=== PATIENT | female | born 1980 | race Caucasian/White ===

== ENCOUNTER 2019-09-29 07:31 | Outpatient (CLI) | payer OTHER, SELFPAY ==
--- NOTE | 2019-10-16 12:54 | SLEEP_ITS ---
CPAP Titration DATE OF STUDY: 09/29/2019 ORDERING PHYSICIAN: Josef Taylor D.O. REASON FOR THE STUDY: Obstructive sleep apnea syndrome seen on a home sleep test on 06/05/2019, returns for a titration. HISTORY: This patient is a 39-year-old female, 62 inches tall, weighing 310 pounds with a body mass index of 56.7. On a prior study 06/05/2019, she had extreme fatigue in the day, excessive sleepiness with difficulty keeping her eyes open and constant snoring. It is loud enough that others complained about it. Other people tell her that she does not breathe normally at night. She occasionally sweats excessively at night and rarely notices her heart pounding irregularly at night. Her AHI was 28.4 with a deep desaturation to 78%, spending 10% of the study below 88% saturation. She returns now for CPAP titration. MEDICAL COMORBIDITIES: Hypertension, fatigue, chest pain, anxiety, palpitations, gastroesophageal reflux disease. MEDICATIONS: 1. Ibuprofen 1 or 2 times per day for pain. 2. Paxil 20 mg a day for depression and anxiety. 3. Omeprazole 40 mg a day for heartburn. 4. [id number] leg cramp medication 2 or 3 times a day for leg cramps. HABITS: Tobacco, half pack per day. Caffeine, 1 coffee, 2 sodas a day. Rare alcohol. No recreational drugs. DESCRIPTION OF THE STUDY: On the Barnes Sleepiness Scale, her score was 10. This was conducted as attended in-lab study using the bluepulse Multiple Channel System including EOG, EEG, submental EMG, EKG, nasal and oral airflow using thermistors and nasal pressure sensors, chest and abdominal belts, body position data, and pulse oximetry. The study was scored using [facility] guidelines. Duration of the study 440.6 minutes. Sleep time 419.7 minutes. Sleep efficiency 95.3%. Sleep latency 13.4 minutes. REM latency 90 minutes. She had 11 awakenings and spent 1.8% of the study awake after sleep onset of 7.5 minutes. Sleep architecture showed 4.6% stage 1 sleep, 59.1% stage 2 sleep, 5.4% stage 3 sleep, and 29.2% stage REM. She spent 98.2% of the study supine. She had dense episodes of REM during the middle of the night. She had 3 REM cycles and the consolidated REM in the middle of the night was over 2 hours. The apnea-hypopnea index was 11.3, all obstructive events. She had 1 obstructive apnea and 24 obstructive hypopneas in supine REM for an index of 12. She had 54 obstructive hypopneas in supine non-REM for an index of 11. The supine index was 11.3. Lowest desaturation was 84% and she spent 6.8 minutes below 88% saturation, 1.5% of the study. She had 79 desaturations of 4% or greater for an index of 10.8. Mean saturation for the study was 91%. OVERALL AROUSAL SUMMARY: Arousals: 52 arousals for an index of 7.1. There were 10 hypopneas for an index of 1.4, 9 snores for an index of 1.2, 33 spontaneous for an index of 4.5. Limb movements: No limb movements. EKG: Sinus rhythm, mean heart rate 81. She had tachycardia with the highest heart rate 104. During this titration, this patient used a small AirFit F20 full face mask. CPAP was started at 5 cm and gradually increased to 14 cm. At the highest pressure, the AHI was still elevated at 12.9, although during the last hour and 15 minutes the patient did not have significant number of events. It is possible, she could have been titrated a little further. She spent 2 hours 32 minutes at a pressure of 14 with 17 minutes of REM, 2 hour 11 minutes of non-REM, a sleep efficiency of 98% and an AHI of 12.9. The minimum saturation was 84. However, during the last hour, the saturation was stable around 90-91 percent. The patient had supine sleep throughout this entire night. IMPRESSION: 1. The CPAP titration shows improvement with a pre
== END 2019-09-29 07:32 | disposition home or self-care (01) ==
LOC: ANHCSM 07:38
PROVIDERS: Visit Provider Internal Medicine
DX: G47.33 Obstructive sleep apnea (adult) (pediatric) (principal)
CPT/HCPCS: 95811

== ENCOUNTER 2020-01-22 17:38 | Emergency (ER) | payer OTHER, SELFPAY ==
[2020-01-22 17:51] VITALS: BP 154/71; PULSE 77; RESP 16; TEMP 37.9; O2SAT 97
--- NOTE | 2020-01-22 18:09 | ED.GENADULT ---
HPI - General Adult General Chief complaint: Dizziness Stated complaint: dizziness Time Seen by Provider: 01/22/20 18:10 Source: patient and RN notes reviewed Mode of arrival: ambulatory Limitations: no limitations History of Present Illness HPI narrative: This is a 39 years old female presented office for evaluations of dizziness for 2 days. Dizziness described as disequilibrium especially when she moving her head. She also describes her dizziness floating instead of walking. Dizziness associated with nauseous, extreme thirst, and malaise. She admits to history of dizziness in the past; but it was only last temporarily and usually went away on its own or with claritin D. Denies sinus congestion, cough, shortness of breath, chest pain, or vomiting. Denies sick contact. 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 She went to work this morning with feeling a little dizziness; but it's definitely worse right now. Her mother drove her here. She did not know that she has fever until we checked here. Her work place does not check fever. Related Data Home Medications Medication Instructions Recorded Confirmed omeprazole 40 mg PO DAILY 01/22/20 01/22/20 paroxetine HCl 20 mg PO DAILY 01/22/20 01/22/20 Allergies Allergy/AdvReac Type Severity Reaction Status Date / Time No Known Allergies Allergy Unverified 10/07/16 08:04 Review of Systems Review of Systems: Narrative: CONSTITUTIONAL: Denies chills EYES: Denies visual changes ENT: Denies congestion, sore throat, ears pain CARDIOVASCULAR: Denies chest pain, palpitation, edema. RESPIRATORY: Denies dyspnea,cough. Reports wearing cpap at night GASTROINTESTINAL: Denies abdominal pain, vomiting, diarrhea. Reports nausea GENITOURINARY: Denies urinary symptoms SKIN: Denies rash/insect bite MUSCULOSKELETAL: Reports generalize ache and pain and fatigues NEUROLOGIC: Denies passing out. Reports extreme dizziness. All other systems reviewed are negative, except as documented in HPI. [facility] Past Medical History Medical History Anxiety disorder, unspecified Essential (primary) hypertension Fatty liver GERD (gastroesophageal reflux disease) Surgical History Surgical History Hx of tonsillectomy Family History Family History (Updated 01/22/20 @ 18:27 by LAURI Schilling) Father Family history of malignant neoplasm Heart disease Grandparent Heart disease Social History Social History Smoking status: Current every day smoker Second hand tobacco smoke exposure: Yes Smoking end date: 07/26/12 Alcohol intake: current Comments At time of signature, I agree with nursing past medical, surgical, social and family history. Exam Narrative: Exam Narrative: GENERAL: This is a well-nourished, well-developed patient, in no apparent distress; but appears ill, Obese EYES: PERRL. EOMI. Sclera clear/white. Vision is grossly intact. EARS: External ears normal, auditory canals clear and without drainage, TMs normal without perforation. Hearing grossly intact. NOSE: External nose normal with no obvious nasal discharge, nares without redness, no rhinorrhea. THROAT: Mucous membranes moist, posterior pharynx clear. NECK: Neck supple, non-tender without lymphadenopathy, masses or thyromegaly. CARDIOVASCULAR: Regular rate and rhythm without murmurs, gallops, or rubs. RESPIRATORY: Clear to auscultation. Breath sounds equal bilaterally. No wheezes, rales, or rhonchi. GASTROINTESTINAL: Abdomen soft, non-tender, nondistended. Bowel sounds are active. No hepato-splenomegaly, or palpable masses. No guarding. SKIN: warm, intact with no suspicious lesions or rash, good texture and turgor. NEURO: awake, alert, and oriented to person, place and time. There were no obvious focal n
[2020-01-22 18:22] VITALS: BP 156/59; PULSE 78
--- NOTE | 2020-01-22 18:22 | ECG_ITS ---
Measurements Intervals [place] Rate: 74 P: 26 [place]: 171 QRS: 13 QRSD: 98 T: 12 QT: 392 QTc: 436 Interpretive Statements SINUS RHYTHM BASELINE ARTIFACT- II, III, AVF BORDERLINE ECG Electronically Signed On 01-23-2020 7:12:19 CDT by Harvey Duvall D.O.
[2020-01-22 18:29] LABS: Glucose Point of Care 85 (65-105)
[2020-01-22 18:37] VITALS: BP 149/81; PULSE 79
[2020-01-22 18:38] VITALS: BP 148/84; PULSE 88
[2020-01-22 18:40] VITALS: TEMP 37.9
[2020-01-22] MEDS: ACETAMINOPHEN 325 MG TABLET 650 MG PO (18:40)
[2020-01-22 19:00] VITALS: TEMP 37.6
== END 2020-01-22 19:00 | disposition home or self-care (01) ==
PROVIDERS: Emergency Provider Nurse Practitioner; PCP Internal Medicine
DX: R55 Syncope and collapse (principal); R50.9 Fever, unspecified; F17.210 Nicotine dependence, cigarettes, uncomplicated; I10 Essential (primary) hypertension
CPT/HCPCS: 82948; 87880; 93005; 99213; A9270; G0463

== ENCOUNTER 2020-05-04 09:12 | Outpatient (CLI) | payer OTHER, SELFPAY ==
[2020-05-04 09:50] LABS: Basophils Percent Auto 0.3 % (0.2-1.2); Eosinophils Absolute Auto 0.2 K/mm3 (0-0.3); Eosinophils Percent Auto 1.8 % (0-4.4); Hematocrit 44.6 % (37.0-47.0); Hemoglobin 14.8 g/dL (12.0-15.0); Immature Granulocyte Absolute 0.04 K/mm3 (0.00-0.031); Immature Granulocyte Percent A 0.3 % (0-0.5); Lymphocytes Absolute Auto 1.99 K/mm3 (0.9-3.2); Mean Corpuscular HGB Conc 33.2 g/dl (32-36); Mean Corpuscular Hemoglobin 30.2 pg (26-34); Mean Platelet Volume 12.2 fl (7.4-10.4); Monocytes Absolute Auto 0.7 K/mm3 (0.1-0.6); Monocytes Percent Auto 6.2 % (2.6-8.5); Neutrophils Absolute Auto 8.7 K/mm3 (1.3-6.7); Neutrophils Percent Auto 74.4 % (45.5-73.1); Platelet Count Result 211 k/mm3 (150-375); Red Cell Distribution Width 13.2 % (11.5-14.5); White Blood Count 11.7 K/mm3 (4.5-10.0)
[2020-05-04 10:52] LABS: Alanine Aminotransferase 14 U/L (4-35); Albumin Level 3.6 g/dL (3.5-5.1); Alkaline Phosphatase 138 U/L (38-126); Anion Gap 7 mmol/L (8-16); Aspartate Amino Transferase 25 U/L (14-36); Bilirubin,Total 0.5 mg/dL (0.2-1.3); Blood Urea Nitrogen 13 mg/dL (7-17); Calcium 8.6 mg/dL (8.4-10.2); Carbon Dioxide 29 mmol/L (22-30); Chloride 102 mmol/L (98-107); Cholesterol 180 mg/dL (0-200); Estimated Glomerular Filt Rate > 60; Glucose 150 mg/dL (65-105); HDL Direct 49 mg/dL; Potassium 4.3 mmol/L (3.4-5.0); Sodium 138 mmol/L (137-145); Triglycerides 83 mg/dL (<150)
[2020-05-04 11:03] LABS: LDL Cholesterol Direct 115 mg/dL
[2020-05-04 11:56] LABS: Folic Acid 9.5 ng/mL (2.76->20)
== END 2020-05-04 09:13 | disposition home or self-care (01) ==
PROVIDERS: PCP Internal Medicine; Visit Provider Internal Medicine
DX: Z00.00 Encounter for general adult medical examination without abnormal findings (principal); R53.83 Other fatigue
CPT/HCPCS: 36415; 80053; 80061; 82607; 82746; 84443; 85025

== ENCOUNTER 2020-05-10 21:52 | Emergency (ER) | payer OTHER, SELFPAY ==
--- NOTE | ~2020-05-10 | XR_ITS ---
EXAMINATION: XR chest 2V EXAM DATE: 05/10/2020 23:17 INDICATION: Elevated blood pressure, tingling in left arm/hand. Hepatic. TECHNIQUE: Frontal and lateral projections of the chest obtained and reviewed. Comparison is made to prior examination from 11/07/2012. FINDINGS: There is low lung volume with some pulmonary vascular crowding. No confluent consolidation, pneumothorax or pleural effusion suspected. Mild to moderate mid thoracic levoscoliosis, lower thora cic dextroscoliosis. IMPRESSION: No acute cardiopulmonary findings. Reviewed, dictated and finalized at location G.
--- NOTE | ~2020-05-10 | CT_ITS ---
EXAMINATION: CT brain wo con EXAM DATE: 05/10/2020 23:13 INDICATION: Left-sided hand paresthesia. TECHNIQUE: Spiral CT of the head was performed without contrast. Axial, coronal and sagittal images were reviewed. The dose-length product (DLP) for this examination was 605.33 mGy-cm. The exposure w as tailored according to patient size, and iterative reconstruction (ASIR) was used as additional dos e reduction technique. There is no prior study for comparison. FINDINGS: There is no acute intraparenchymal hemorrhage. No evidence of intraparenchymal brain mass lesion. No evidence of acute infarction. There is no mass effect or midline shift. The ventricles are normal in size. There are no extra-axial collections. There are no acute calvarial fractures. T he orbits are unremarkable. Soft tissue is unremarkable. The visualized sinuses and mastoid air loraine ls are well aerated. IMPRESSION: 1. No acute intracranial findings. Reviewed, dictated and finalized at location G.
[2020-05-10 21:57] VITALS: BP 181/101; PULSE 96; RESP 20; TEMP 36.8; O2SAT 100
--- NOTE | 2020-05-10 21:58 | ED.GENADULT ---
HPI - General Adult General Chief complaint: Recheck/Abnormal Lab/Rx Stated complaint: not feeling well Time Seen by Provider: 05/10/20 21:57 Source: patient Mode of arrival: ambulatory Limitations: no limitations History of Present Illness HPI narrative: Patient is a 39-year-old female with a history of hypertension who presents for evaluation of feeling off and elevated blood pressure readings. Patient went to a blood drive this evening, had her screening blood pressure taken and it was quite elevated. Patient was urged to come to the emergency department or contact her primary care physician. Patient follows with Dr. Taylor, cannot remember the name of the blood pressure medicine she is to be prescribed. Patient is reporting mild headache, denies any chest pain, cough, shortness of breath. No history of kidney injury. Patient states she stopped smoking 1 month ago and has had a 50 pound weight gain this year. Patient denies any numbness or weakness. She reports feeling as if she had some mild tingling in her left hand earlier this afternoon, now resolved. 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 No difficulty with ambulation. No vision changes. Related Data Home Medications Medication Instructions Recorded Confirmed omeprazole 40 mg PO DAILY 01/22/20 05/10/20 ibuprofen 800 mg tablet 800 mg PO TID 01/30/20 05/10/20 Allergies Allergy/AdvReac Type Severity Reaction Status Date / Time No Known Allergies Allergy Verified 05/10/20 22:00 Review of Systems Review of Systems: Narrative: CONSTITUTIONAL: Denies fever EYES: Denies visual changes ENT: Denies rhinorrhea, congestion, sore throat, or otalgia. CARDIOVASCULAR: Denies chest pain, palpitations, or edema. RESPIRATORY: Denies cough or dyspnea. GASTROINTESTINAL: Denies abdominal pain, nausea, vomiting, or diarrhea. GENITOURINARY: Denies dysuria or hematuria. SKIN: Denies rash or itching. MUSCULOSKELETAL: Denies back pain, joint pain, or myalgia. NEUROLOGIC: Denies headache, numbness, or weakness. Tingling in left hand, now resolved. [facility] Past Medical History Medical History Anxiety disorder, unspecified Essential (primary) hypertension Fatty liver GERD (gastroesophageal reflux disease) Surgical History Surgical History Hx of tonsillectomy Family History Family History Father Family history of malignant neoplasm Heart disease Grandparent Heart disease Social History Social History Smoking packs per day: 1 Smoking cigarettes per day: 20.0 Years smoked: 28 Smoking pack-years: 28.00 Smoking status: Former smoker Tobacco type: cigarettes Second hand tobacco smoke exposure: Yes Smoking end date: 04/04/20 Alcohol intake: former Substance use: never Exam Narrative: Exam Narrative: GENERAL: Awake, obese, alert, conversant HEAD: Normocephalic, atraumatic. EYES: PERRLA and EOMI. ENT: Nares clear, no rhinorrhea or epistaxis. Mucous membranes moist. NECK: Supple. CHEST: No respiratory distress, breathing even and non labored HEART: Regular rate, sinus rhythm ABDOMEN:Non distended, non tender EXTREMITIES: Normal range of motion. No edema. SKIN: Warm, dry, no rash. NEURO:No focal deficits. Alert and oriented x3 Course Vital Signs Vital signs: Vital Signs Temperature 36.8 C 05/10/20 21:57 Pulse Rate 96 05/10/20 21:57 Respiratory Rate 20 05/10/20 21:57 Blood Pressure 181/101 H 05/10/20 21:57 Pulse Oximetry 100 05/10/20 21:57 Temperature 36.8 C 05/10/20 21:57 Pulse Rate 93 05/10/20 23:00 Respiratory Rate 16 05/10/20 23:00 Blood Pressure 157/88 H 05/11/20 00:15 Pulse Oximetry 100 05/11/20 00:15 Medical Decision Making MDM Narrative Medical decision making narrative: Negra
--- NOTE | 2020-05-10 22:53 | ECG_ITS ---
Measurements Intervals [place] Rate: 93 P: 57 [place]: 184 QRS: -2 QRSD: 109 T: 28 QT: 377 QTc: 471 Interpretive Statements SINUS RHYTHM DELAYED PRECORDIAL R/S TRANSITION BASELINE ARTIFACT- I, II, III, AVF, V1 BORDERLINE ECG Electronically Signed On 05-11-2020 7:35:00 CDT by Harvey Duvall D.O.
[2020-05-10 23:00] VITALS: BP 174/95; PULSE 91; PULSE 93; RESP 16; RESP 19; O2SAT 100
--- NOTE | 2020-05-10 23:00 | PC.NURSE ---
Pt. to CT
--- NOTE | 2020-05-10 23:09 | PC.NURSE ---
Assumed care of pt at this time. Report from NADIA Suresh
[2020-05-10] MEDS: hydrALAZINE HCL 20 MG/ML VIAL 10 MG IV PUSH (23:34)
[2020-05-10 23:39] LABS: Basophils Absolute Auto 0.1 K/mm3 (0.0-0.1); Basophils Percent Auto 0.4 % (0.2-1.2); Eosinophils Absolute Auto 0.3 K/mm3 (0-0.3); Eosinophils Percent Auto 1.7 % (0-4.4); Hematocrit 44.4 % (37.0-47.0); Immature Granulocyte Absolute 0.05 K/mm3 (0.00-0.031); Immature Granulocyte Percent A 0.3 % (0-0.5); Lymphocytes Absolute Auto 2.69 K/mm3 (0.9-3.2); Lymphocytes Percent Auto 18.5 % (18.3-44.2); Mean Corpuscular HGB Conc 33.8 g/dl (32-36); Mean Corpuscular Hemoglobin 29.8 pg (26-34); Mean Corpuscular Volume 88.1 fl (80-100); Mean Platelet Volume 11.6 fl (7.4-10.4); Monocytes Absolute Auto 1.2 K/mm3 (0.1-0.6); Neutrophils Absolute Auto 10.4 K/mm3 (1.3-6.7); Neutrophils Percent Auto 71.1 % (45.5-73.1); Platelet Count Result 227 k/mm3 (150-375); Red Blood Count 5.04 M/mm3 (4.2-5.4); Red Cell Distribution Width 13.2 % (11.5-14.5); White Blood Count 14.6 K/mm3 (4.5-10.0)
[2020-05-10 23:45] VITALS: BP 150/92; O2SAT 98
[2020-05-10 23:50] LABS: Prothrombin Time 12.7 Seconds (11.1-14.7)
[2020-05-10 23:51] LABS: Partial Thromboplastin Time 28.1 SECONDS (22.3-36.8)
[2020-05-11] VITALS: BP 151/96; O2SAT 100
[2020-05-11] LABS: Anion Gap 6 mmol/L (8-16); Blood Urea Nitrogen 11 mg/dL (7-17); Carbon Dioxide 32 mmol/L (22-30); Chloride 100 mmol/L (98-107); Estimated Glomerular Filt Rate > 60; Glucose 164 mg/dL (65-105); Potassium 3.9 mmol/L (3.4-5.0); Sodium 138 mmol/L (137-145)
[2020-05-11 00:11] LABS: Troponin I < 0.012 ng/mL (0.000-0.034)
[2020-05-11 00:15] VITALS: BP 157/88; O2SAT 100
[2020-05-11] MEDS: hydroCHLOROthiazide 25 MG TABLET PO (00:42)
[2020-05-11 01:24] LABS: Add Urine Microscopic? NO; Appearance Urine Clear (Clear); Bilirubin Urine Negative (Negative); Blood Urine Negative (Negative); Color Urine Straw (Yellow); Glucose Urine UA Negative (Negative); Ketones Urine Negative (Negative); Leukocyte Esterase Ur Negative LEU/UL (Negative); Nitrate Urine Negative (Negative); Protein Urine Negative (Negative); Specific Grav Ur 1.011 (1.001-1.035); Urobilinogen Urine Negative mg/dL (<2.0)
[2020-05-11 01:46] VITALS: BP 171/103; PULSE 96; RESP 15; O2SAT 98
== END 2020-05-11 01:45 | disposition home or self-care (01) ==
PROVIDERS: Emergency Provider Emergency Medicine; PCP Internal Medicine
DX: I10 Essential (primary) hypertension (principal); K21.9 Gastro-esophageal reflux disease without esophagitis; Z87.891 Personal history of nicotine dependence; R94.31 Abnormal electrocardiogram [ECG] [EKG]
CPT/HCPCS: 36415; 70450; 71046; 80048; 81003; 84484; 85025; 85610; 85730; 93005; 96374; 99284; A9270; J0360

== ENCOUNTER 2020-05-17 15:55 | Outpatient (CLI) | payer OTHER, SELFPAY ==
[2020-05-17 16:27] LABS: Hemoglobin A1C 6.7 % (<5.7)
== END 2020-05-17 15:56 | disposition home or self-care (01) ==
PROVIDERS: PCP Internal Medicine; Visit Provider Physician Assistant
DX: R73.9 Hyperglycemia, unspecified (principal)
CPT/HCPCS: 36415; 83036

== ENCOUNTER 2020-08-10 10:36 | Outpatient (CLI) | payer OTHER, SELFPAY ==
[2020-08-10 11:30] LABS: Alanine Aminotransferase 14 U/L (4-35); Albumin Level 3.8 g/dL (3.5-5.1); Alkaline Phosphatase 136 U/L (38-126); Anion Gap 2 mmol/L (8-16); Aspartate Amino Transferase 28 U/L (14-36); Bilirubin,Total 0.3 mg/dL (0.2-1.3); Blood Urea Nitrogen 13 mg/dL (7-17); Calcium 9.3 mg/dL (8.4-10.2); Carbon Dioxide 36 mmol/L (22-30); Chloride 99 mmol/L (98-107); Estimated Glomerular Filt Rate > 60; Glucose 172 mg/dL (65-105); Hemoglobin A1C 7.4 % (<5.7); Potassium 3.6 mmol/L (3.4-5.0); Sodium 137 mmol/L (137-145)
== END 2020-08-10 10:37 | disposition home or self-care (01) ==
LOC: ANHLAB 10:37
PROVIDERS: PCP Internal Medicine; Visit Provider Internal Medicine
DX: R73.9 Hyperglycemia, unspecified (principal)
CPT/HCPCS: 36415; 80053; 83036

== ENCOUNTER 2020-10-05 09:36 | Outpatient (CLI) | payer OTHER, SELFPAY ==
[2020-10-05 09:57] LABS: Basophils Percent Auto 0.3 % (0.2-1.2); Eosinophils Absolute Auto 0.2 K/mm3 (0-0.3); Eosinophils Percent Auto 1.6 % (0-4.4); Hematocrit 45.4 % (37.0-47.0); Hemoglobin 15.4 g/dL (12.0-15.0); Immature Granulocyte Absolute 0.05 K/mm3 (0.00-0.031); Immature Granulocyte Percent A 0.4 % (0-0.5); Lymphocytes Absolute Auto 1.69 K/mm3 (0.9-3.2); Lymphocytes Percent Auto 14.6 % (18.3-44.2); Mean Corpuscular HGB Conc 33.9 g/dl (32-36); Mean Corpuscular Hemoglobin 31.5 pg (26-34); Mean Corpuscular Volume 92.8 fl (80-100); Mean Platelet Volume 11.7 fl (7.4-10.4); Monocytes Absolute Auto 0.9 K/mm3 (0.1-0.6); Monocytes Percent Auto 7.9 % (2.6-8.5); Neutrophils Absolute Auto 8.7 K/mm3 (1.3-6.7); Neutrophils Percent Auto 75.2 % (45.5-73.1); Platelet Count Result 209 k/mm3 (150-375); Red Blood Count 4.89 M/mm3 (4.2-5.4); Red Cell Distribution Width 13.9 % (11.5-14.5); White Blood Count 11.6 K/mm3 (4.5-10.0)
[2020-10-05 10:03] LABS: Hemoglobin A1C 6.7 % (<5.7)
[2020-10-05 10:08] LABS: Alanine Aminotransferase 23 U/L (4-35); Alkaline Phosphatase 114 U/L (38-126); Anion Gap 5 mmol/L (8-16); Aspartate Amino Transferase 32 U/L (14-36); Bilirubin,Total 0.4 mg/dL (0.2-1.3); Blood Urea Nitrogen 17 mg/dL (7-17); Calcium 9.1 mg/dL (8.4-10.2); Carbon Dioxide 32 mmol/L (22-30); Chloride 100 mmol/L (98-107); Cholesterol 179 mg/dL (0-200); Estimated Glomerular Filt Rate > 60; Glucose 155 mg/dL (65-105); HDL Direct 38 mg/dL; Potassium 3.5 mmol/L (3.4-5.0); Sodium 137 mmol/L (137-145); Triglycerides 114 mg/dL (<150)
[2020-10-05 10:19] LABS: LDL Cholesterol Direct 103 mg/dL
[2020-10-05 10:30] LABS: Creatinine Urine 74.6 mg/dL
[2020-10-05 10:48] LABS: MALB Creatinine Ratio < 8.0 mg/g (0-30); Microalbumin Urine Random < 6.0 mg/L (0-16.7)
[2020-10-05 11:18] LABS: Folic Acid 11.3 ng/mL (2.76->20)
== END 2020-10-05 09:37 | disposition home or self-care (01) ==
PROVIDERS: PCP Internal Medicine; Visit Provider Internal Medicine
DX: R53.83 Other fatigue (principal); E11.9 Type 2 diabetes mellitus without complications
CPT/HCPCS: 36415; 80053; 80061; 82043; 82607; 82746; 83036; 84443; 85025

== ENCOUNTER 2020-11-29 16:18 | Emergency (ER) | payer OTHER, SELFPAY ==
--- NOTE | ~2020-11-29 | XR_ITS ---
EXAMINATION: XR chest 2V DATE: 11/29/2020 16:55 INDICATION: Chest tightness. Cough. TECHNIQUE: Frontal and lateral views of the chest were obtained. COMPARISON: Chest 2 views 05/10/2020, CT abdomen and pelvis 11/13/2016 FINDINGS: The chest demonstrates clear lungs without pneumonia, pleural effusion, or pneumothorax. Th e heart size is normal. There is chronic anterior wedging of multiple thoracic vertebral bodies. IMPRESSION: 1. No acute cardiopulmonary disease. Reviewed, dictated and finalized at location A.
[2020-11-29 16:27] VITALS: BP 85/51; PULSE 84; RESP 18; TEMP 36.9; O2SAT 99
--- NOTE | 2020-11-29 16:31 | ED.URI ---
HPI - URI/Sore Throat General Chief Complaint: Upper Respiratory Infection Stated Complaint: Sore Throat Time Seen by Provider: 11/29/20 16:31 Source: patient Mode of arrival: ambulatory Limitations: no limitations History of Present Illness HPI Narrative: Marielena Scherer is a 40 yo female with a PMH of HTN, prediabtes, morbid obesity, who comes to express care with 3 days of cough, sore thoat (that is improving) but worsening of fatigue and deepness of cough. States she occ coughs so hard she feels like she may vomit. Related Data Home Medications Medication Instructions Recorded Confirmed omeprazole 40 mg PO DAILY 01/22/20 10/08/20 ibuprofen 800 mg tablet 800 mg PO TID 01/30/20 10/08/20 amlodipine 11/29/20 Allergies Allergy/AdvReac Type Severity Reaction Status Date / Time No Known Allergies Allergy Verified 10/07/20 16:33 Review of Systems Review of Systems: Narrative: CONSTITUTIONAL: Denies fever, chills, sweats. Feels fatigued EYES: Denies visual changes, redness, discharge. ENT: Denies rhinorrhea, has congestion, has sore throat, otalgia. CARDIOVASCULAR: Denies chest pain, palpitations, edema. RESPIRATORY: Denies dyspnea, wheezing, has cough GASTROINTESTINAL: Denies abdominal pain, nausea, vomiting, diarrhea. GENITOURINARY: Denies dysuria, hematuria, abnormal discharge SKIN: Denies rash or itching. NEUROLOGIC: Denies numbness, or focal weakness. PSYCHIATRIC: Denies anxiety or depression. [facility] Past Medical History Medical History Anxiety disorder, unspecified Essential (primary) hypertension Fatty liver GERD (gastroesophageal reflux disease) Hyperglycemia Surgical History Surgical History Hx of tonsillectomy Family History Family History Father Family history of malignant neoplasm Heart disease Grandparent Heart disease Mother Hypertension Social History Social History (Updated 11/29/20 @ 16:42 by No Paniagua CNP) Smoking packs per day: 0.5 Smoking cigarettes per day: 10.0 Years smoked: 28 Smoking pack-years: 14.00 Smoking status: Current every day smoker Tobacco type: cigarettes Second hand tobacco smoke exposure: Yes Smoking end date: 04/04/20 Additional smoking assessment comments: started again 3 months ago - 09/15 Alcohol intake: former Substance use: never Exam Narrative: Exam Narrative: GENERAL: This is a well-nourished, well-developed patient, in mild distress. HEAD: normocephalic, atraumatic. EYES: PERRL. Sclera clear/white. Vision is grossly intact. EARS: External ears normal, auditory canals have erythema and without drainage, TMs normal without perforation. Hearing grossly intact. NOSE: External nose normal without nasal discharge, nares witho redness, no rhinorrhea. THROAT: Mucous membranes moist, posterior pharynx erythema with no exudate. NECK: Neck supple, non-tender CARDIOVASCULAR: Regular rate and rhythm without murmurs, gallops, or rubs. RESPIRATORY: Coarse throat exam to auscultation. Breath sounds equal bilaterally. No wheezes, rales, or rhonchi. GASTROINTESTINAL: Abdomen soft, non-tender, SKIN: warm, intact with no suspicious lesions or rash, good texture and turgor. NEURO: awake, alert, and oriented to person, place and time. There were no obvious focal neurologic abnormalities. Steady gait EXTREMITIES: Normal range of motion. BACK: Nontender without deformity Course Course Emergency Course: Patient is a 40-year-old female comes to [facility] for assessment of cough and chest tightness-sometimes she coughs so hard she feels like she is going to vomit Chest x-ray shows-no acute cardiopulmonary disease Strep test is positive Started on penicillin V 500 mg 3 times daily, codeine cough syrup, Zyrtec , 4 days of steroids Vital Signs Vital signs: Vital Signs T
== END 2020-11-29 17:34 | disposition home or self-care (01) ==
PROVIDERS: Emergency Provider Nurse Practitioner; PCP Internal Medicine
DX: J02.0 Streptococcal pharyngitis (principal); R05 Cough; F17.210 Nicotine dependence, cigarettes, uncomplicated; I10 Essential (primary) hypertension; K21.9 Gastro-esophageal reflux disease without esophagitis; K76.0 Fatty (change of) liver, not elsewhere classified; R73.03 Prediabetes; E66.01 Morbid (severe) obesity due to excess calories; Z68.43 Body mass index [BMI] 50.0-59.9, adult; F41.9 Anxiety disorder, unspecified
CPT/HCPCS: 71046; 87880; 99213; G0463

== ENCOUNTER 2021-02-15 10:16 | Outpatient (CLI) | payer OTHER, SELFPAY ==
[2021-02-15 10:42] LABS: Basophils Absolute Auto 0.1 K/mm3 (0.0-0.1); Basophils Percent Auto 0.4 % (0.2-1.2); Eosinophils Absolute Auto 0.3 K/mm3 (0-0.3); Eosinophils Percent Auto 2.4 % (0-4.4); Hematocrit 44.5 % (37.0-47.0); Immature Granulocyte Absolute 0.05 K/mm3 (0.00-0.031); Immature Granulocyte Percent A 0.4 % (0-0.5); Lymphocytes Absolute Auto 2.29 K/mm3 (0.9-3.2); Lymphocytes Percent Auto 16.9 % (18.3-44.2); Mean Corpuscular HGB Conc 33.7 g/dl (32-36); Mean Platelet Volume 12.2 fl (7.4-10.4); Monocytes Absolute Auto 0.8 K/mm3 (0.1-0.6); Neutrophils Percent Auto 73.9 % (45.5-73.1); Platelet Count Result 259 k/mm3 (150-375); Red Cell Distribution Width 14.1 % (11.5-14.5); White Blood Count 13.6 K/mm3 (4.5-10.0)
[2021-02-15 10:47] LABS: Alanine Aminotransferase 15 U/L (4-35); Alkaline Phosphatase 125 U/L (38-126); Anion Gap 9 mmol/L (8-16); Aspartate Amino Transferase 27 U/L (14-36); Bilirubin,Total 0.5 mg/dL (0.2-1.3); Blood Urea Nitrogen 10 mg/dL (7-17); Calcium 9.1 mg/dL (8.4-10.2); Carbon Dioxide 28 mmol/L (22-30); Chloride 98 mmol/L (98-107); Cholesterol 194 mg/dL (0-200); Estimated Glomerular Filt Rate > 60; Glucose 183 mg/dL (65-110); HDL Direct 43 mg/dL; Potassium 3.6 mmol/L (3.4-5.0); Sodium 135 mmol/L (137-145); Triglycerides 104 mg/dL (<150)
[2021-02-15 10:50] LABS: Hemoglobin A1C 7.8 % (<5.7)
[2021-02-15 10:54] LABS: Creatinine Urine 189.1 mg/dL
[2021-02-15 10:58] LABS: LDL Cholesterol Direct 108 mg/dL
[2021-02-15 11:00] LABS: MALB Creatinine Ratio 18.5 mg/g (0-30)
[2021-02-15 11:53] LABS: Folic Acid 11.9 ng/mL (2.76->20)
== END 2021-02-15 10:17 | disposition home or self-care (01) ==
PROVIDERS: PCP Internal Medicine; Visit Provider Internal Medicine
DX: R53.83 Other fatigue (principal); E11.9 Type 2 diabetes mellitus without complications
CPT/HCPCS: 36415; 80053; 80061; 82043; 82607; 82746; 83036; 84443; 85025

== ENCOUNTER 2021-02-21 09:47 | Outpatient (CLI) | payer OTHER, SELFPAY ==
[2021-02-21 10:17] LABS: Add Urine Microscopic? YES; Appearance Urine Clear (Clear); Bacteria Urine Trace /hpf; Bilirubin Urine Negative (Negative); Blood Urine Negative (Negative); Color Urine Yellow (Yellow); Glucose Urine UA 1+ mg/dL (Negative); Ketones Urine Negative (Negative); Leukocyte Esterase Ur Negative LEU/UL (Negative); Mucus Urine Rare /lpf; Nitrate Urine Negative (Negative); Protein Urine Negative (Negative); RBC Urine 0-2 /hpf (0-2); Specific Grav Ur 1.023 (1.001-1.035); Squamous Epithelial Cell Urine Many /hpf (Few); WBC Urine 0-3 /hpf
== END 2021-02-21 09:48 | disposition home or self-care (01) ==
PROVIDERS: PCP Internal Medicine; Visit Provider Internal Medicine
DX: M54.9 Dorsalgia, unspecified (principal)
CPT/HCPCS: 81001

== ENCOUNTER 2021-06-21 13:57 | Emergency (ER) | payer OTHER, SELFPAY ==
[2021-06-21 14:24] VITALS: BP 117/64; PULSE 90; RESP 20; TEMP 36.4; O2SAT 97
--- NOTE | 2021-06-21 14:24 | ED.GENADULT ---
HPI - General Adult General Chief complaint: Upper Respiratory Infection Stated complaint: sore throat Time Seen by Provider: 06/21/21 14:25 Source: patient Mode of arrival: ambulatory Limitations: no limitations History of Present Illness HPI narrative: 40-year-old female patient presents to the [facility] with complaints of a sore throat off and on again for the past 3 days. Patient states she has had her strep throat before in the past. Patient states she has had a little bit of drainage and a headache. Patient states she has been taking 1 Claritin and some Tylenol for her symptoms. Patient states she is fully vaccinated with 1 dose regiment against Covid Related Data Home Medications Medication Instructions Recorded Confirmed omeprazole 40 mg PO DAILY 01/22/20 06/21/21 ibuprofen 800 mg tablet 800 mg PO TID 01/30/20 06/21/21 loratadine 10 mg tablet 10 mg PO DAILY 03/21/21 06/21/21 Allergies Allergy/AdvReac Type Severity Reaction Status Date / Time No Known Allergies Allergy Verified 06/21/21 14:19 Review of Systems Review of Systems: CONSTITUTIONAL: Denies fever, chills, or sweats. EYES: Denies visual changes, redness, or discharge. ENT: Denies rhinorrhea, congestion, positive sore throat, denies otalgia. CARDIOVASCULAR: Denies chest pain, palpitations, or edema. RESPIRATORY: Denies cough or dyspnea. GASTROINTESTINAL: Denies abdominal pain, nausea, vomiting, or diarrhea. GENITOURINARY: Denies dysuria or hematuria. SKIN: Denies rash or itching. MUSCULOSKELETAL: Denies back pain, joint pain, or myalgia. NEUROLOGIC: Denies headache, numbness, or weakness. PSYCHIATRIC: Denies anxiety or depression. [facility] Past Medical History Medical History Anxiety disorder, unspecified Arthritis Essential (primary) hypertension Fatty liver Fibromyalgia GERD (gastroesophageal reflux disease) Hyperglycemia Migraine Uterine fibroid Surgical History Surgical History History of colposcopy 2017 History of dilation and curettage 2008 2017 History of esophagogastroduodenoscopy (EGD) 2019 History of tonsillectomy and adenoidectomy 1981 [place] teeth extracted 1998 Family History Family History Father Family history of malignant neoplasm Heart disease Hypertension Grandparent Heart disease Mother Hypertension Thyroid disorder Alcoholism Lung cancer Heart disease Cerebrovascular accident Alzheimer disease Social History Social History Smoking packs per day: 0.33 Smoking cigarettes per day: 6.6 Smoking status: Current every day smoker Tobacco type: cigarettes Second hand tobacco smoke exposure: Yes Smoking end date: 04/04/20 Additional smoking assessment comments: started again 3 months ago - 09/15 Alcohol intake: current Alcohol use details: occassional Substance use: never Comments At the time of my signature I agree with nursing past medical history, surgical, social, and family history. There is no relevant family history pertinent to the presenting complaint. Exam Narrative: GENERAL: Well-appearing, well-nourished, and in no acute distress. HEAD: Normocephalic, atraumatic. EYES: PERRLA and EOMI. ENT: Nares clear, no rhinorrhea or epistaxis. Mucous membranes moist. Posterior pharynx with no erythema, tonsillar Aye, exudates or lesions present. Bilateral TMs are clear with no erythema or foreign bodies to the canal. NECK: Supple. No lymphadenopathy CHEST: Clear to auscultation. No respiratory distress. HEART: Regular rate and rhythm. No murmur heard. Normal peripheral pulses. ABDOMEN: Soft, nontender, nondistended, normal active bowel sounds. EXTREMITIES: Normal range of motion. No edema. SKIN: Warm, dry, no rash. NEURO: No focal deficits. Alert and
== END 2021-06-21 14:40 | disposition home or self-care (01) ==
PROVIDERS: Emergency Provider Nurse Practitioner Family; PCP Internal Medicine
DX: J02.9 Acute pharyngitis, unspecified (principal); F17.210 Nicotine dependence, cigarettes, uncomplicated; M19.90 Unspecified osteoarthritis, unspecified site; I10 Essential (primary) hypertension; M79.7 Fibromyalgia; K21.9 Gastro-esophageal reflux disease without esophagitis; F41.9 Anxiety disorder, unspecified
CPT/HCPCS: 87081; 87880; 99213; G0463

== ENCOUNTER → 2021-06-23 08:04 | Outpatient (CLI) | payer OTHER, SELFPAY ==
[2021-06-23 20:05] LABS: SARS-CoV-2 RNA PCR Positive
== END ==
PROVIDERS: PCP Internal Medicine; Visit Provider Nurse Practitioner Family
DX: U07.1 COVID-19 (principal)
CPT/HCPCS: C9803; U0003; U0005

== ENCOUNTER 2021-06-26 07:33 | Outpatient (RCR) | payer OTHER, SELFPAY ==
[2021-06-26] MEDS: ACETAMINOPHEN 325 MG TABLET 650 MG PO (09:24)
[2021-06-26] MEDS: diphenhydrAMINE HCl CAP 25 MG CAPSULE PO (09:25)
[2021-06-26] MEDS: FAMOTIDINE 20 MG TABLET PO (09:25)
[2021-06-26 09:32] VITALS: BP 136/78; PULSE 97; RESP 16; TEMP 36.3; O2SAT 95
[2021-06-26 10:52] VITALS: BP 123/77
--- NOTE | 2021-06-27 08:31 | PC.NURSE ---
Spoke to Ms Gilmer and she is feeling tired but did better last night than she has in days. She is going to continue the Benadryl and Tylenol throughout the day and will follow up with PCP next week if needed.
== END 2021-06-26 17:00 ==
LOC: AMCINF 07:33
PROVIDERS: PCP Internal Medicine; Visit Provider Internal Medicine Hematology & Oncology
DX: U07.1 COVID-19 (principal); E11.9 Type 2 diabetes mellitus without complications
CPT/HCPCS: A9270; M0243; Q0243

== ENCOUNTER 2021-09-27 09:22 | Outpatient (CLI) | payer OTHER, SELFPAY ==
[2021-09-27 09:42] LABS: Hematocrit 40.3 % (37.0-47.0); Hemoglobin 13.6 g/dL (12.0-15.0); Mean Corpuscular HGB Conc 33.7 g/dl (32-36); Mean Corpuscular Hemoglobin 30.8 pg (26-34); Mean Corpuscular Volume 91.2 fl (80-100); Mean Platelet Volume 11.7 fl (7.4-10.4); Platelet Count Result 195 k/mm3 (150-375); Red Blood Count 4.42 M/mm3 (4.2-5.4); Red Cell Distribution Width 13.5 % (11.5-14.5); White Blood Count 11.5 K/mm3 (4.5-10.0)
[2021-09-27 09:53] LABS: Alanine Aminotransferase 15 U/L (4-35); Albumin Level 3.6 g/dL (3.5-5.1); Alkaline Phosphatase 134 U/L (38-126); Anion Gap 5 mmol/L (8-16); Aspartate Amino Transferase 30 U/L (14-36); Bilirubin,Total 0.3 mg/dL (0.2-1.3); Blood Urea Nitrogen 11 mg/dL (7-17); Calcium 8.5 mg/dL (8.4-10.2); Carbon Dioxide 33 mmol/L (22-30); Chloride 99 mmol/L (98-107); Cholesterol 194 mg/dL (0-200); Estimated Glomerular Filt Rate > 60; Glucose 203 mg/dL (65-110); HDL Direct 44 mg/dL; Potassium 3.9 mmol/L (3.4-5.0); Sodium 137 mmol/L (137-145); Triglycerides 113 mg/dL (<150)
[2021-09-27 10:04] LABS: LDL Cholesterol Direct 113 mg/dL
[2021-09-27 10:20] LABS: Hemoglobin A1C 8.1 % (<5.7)
[2021-09-27 10:34] LABS: Creatinine Urine 97.6 mg/dL
[2021-09-27 10:39] LABS: MALB Creatinine Ratio 78.4 mg/g (0-30); Microalbumin Urine Random 76.5 mg/L (0-16.7)
== END 2021-09-27 09:23 | disposition home or self-care (01) ==
LOC: ANHLAB 09:24
PROVIDERS: PCP Internal Medicine; Visit Provider Physician Assistant
DX: R53.83 Other fatigue (principal); E11.9 Type 2 diabetes mellitus without complications
CPT/HCPCS: 36415; 80053; 80061; 82043; 83036; 84443; 85027

== ENCOUNTER 2021-10-01 10:15 | Outpatient (CLI) | payer OTHER, SELFPAY ==
--- NOTE | 2021-10-01 12:39 | WPDPFTINT ---
PFT Procedure Performed PFT Procedure Performed Spirometry with Pre/Post Bronchodilator Plethysmography (Lung Vol) Diffusing Cap (DLCO) Flow Vol Loop PFT Interpretation Lung volumes were measured with the body plethysmography method. The diminished expiratory reserve volume is due to obesity. The remaining lung volumes are unremarkable. Spirometry showed diminished expiratory flow rates and a normal FEV1 to FVC ratio of 77%. Following administration of a bronchodilator there was no significant change in the expiratory flow rates. This restrictive pattern on spirometry in the face of a normal total lung capacity is consistent with nonspecific pattern. Lung diffusion capacity is within the normal range at 85% predicted. The flow volume loop is unremarkable. Overall, pulmonary function testing is consistent with morbid obesity. Clinical correlation advised. Impression: Nonspecific pattern. Lung diffusion capacity within normal range.
== END 2021-10-01 10:16 | disposition home or self-care (01) ==
LOC: ANHPFT 10:17
PROVIDERS: PCP Internal Medicine; Visit Provider Physician Assistant
DX: R06.02 Shortness of breath (principal); R94.2 Abnormal results of pulmonary function studies
CPT/HCPCS: 94060; 94726; 94729

== ENCOUNTER 2021-11-28 06:38 | Outpatient (CLI) | payer OTHER, SELFPAY ==
--- NOTE | ~2021-11-28 | CT_ITS ---
EXAMINATION: CT abdomen pelvis w con INDICATION: Abdominal pain TECHNIQUE: Computed tomographic images of the abdomen and pelvis were obtained after the administrati on of 100 cc of Omnipaque 350 intravenous contrast. The dose-length product (DLP) was 1588.15 mGy-cm. Automated exposure control and iterative reconstruction technique were employed. COMPARISON: 11/13/2016 FINDINGS: The lung bases are clear. The heart size is normal. The liver is diffusely low in attenuati on when compared with the spleen, consistent with hepatic steatosis. There are multiple stones in the nondistended gallbladder. The spleen, pancreas, and adrenal glands are normal. The kidneys are unrem arkable. No pathologically enlarged abdominal or pelvic lymph nodes are identified. There is no free intraperitoneal gas or evidence of bowel obstruction. The appendix is normal. There is a 4.6 cm cyst of the left ovary. There is chronic anterior wedging of multiple lower thoracic vertebral bodies. IMPRESSION: 1. Cholelithiasis without evidence cholecystitis. Reviewed, dictated and finalized at location A.
[2021-11-28 07:12] LABS: Estimated Glomerular Filt Rate > 60
== END 2021-11-28 06:39 | disposition home or self-care (01) ==
LOC: ANHIMG 06:42
PROVIDERS: PCP Internal Medicine; Visit Provider Physician Assistant
DX: R10.9 Unspecified abdominal pain (principal); K80.20 Calculus of gallbladder without cholecystitis without obstruction
CPT/HCPCS: 74177; Q9967

== ENCOUNTER 2022-01-04 11:49 | Outpatient (CLI) | payer OTHER, SELFPAY ==
--- NOTE | ~2022-01-04 | XR_ITS ---
XR knee LT 3V 01/04/2022 12:09 Indication: Left knee pain Procedure: 3 views left knee Comparison: 07/14/2006 Findings: There is mild osteoarthritis of the patellofemoral compartment. No fracture, subluxation or dislocation. No significant joint effusion. No foreign bodies. Impression: 1: No acute bone or joint abnormality. Reviewed, dictated and finalized at location A. Impression: 1: No acute bone or joint abnormality.
== END 2022-01-04 11:50 | disposition home or self-care (01) ==
PROVIDERS: PCP Internal Medicine; Visit Provider Internal Medicine
DX: M17.12 Unilateral primary osteoarthritis, left knee (principal)
CPT/HCPCS: 73562

== ENCOUNTER 2023-07-17 10:56 | Emergency (ER) | payer OTHER, SELFPAY ==
--- NOTE | ~2023-07-17 | XR_ITS ---
XR chest 2V DATE: 07/17/2023 12:29 INDICATION: Cough. Smoker. TECHNIQUE: PA and lateral views COMPARISON: None FINDINGS: Moderate levoscoliosis of the upper thoracic spine. Degenerative spurring of the thoracic s pine. Normal heart size. No hilar or mediastinal enlargement. No pulmonary infiltrate or consolidation, ple ural effusion or pulmonary vascular congestion or pneumothorax is detected. IMPRESSION: No active cardiac pulmonary disease Scoliosis and degenerative change of the thoracic spine Reviewed, dictated and finalized at location A. ICAL STAFF ANESTHESIOLOGIST
[2023-07-17 11:32] VITALS: BP 143/74; PULSE 108; RESP 18; TEMP 36.4; O2SAT 95
--- NOTE | 2023-07-17 12:17 | ED.URI ---
HPI - URI/Sore Throat General Chief Complaint: Upper Respiratory Infection Stated Complaint: Sore Throat Time Seen by Provider: 07/17/23 12:17 Source: patient, RN notes reviewed and old records reviewed Mode of arrival: ambulatory Limitations: no limitations History of Present Illness HPI Narrative: 43-year-old female presents to the [facility] with complaints of shortness of breath, throat pain that started Wednesday. Patient states she gets more short of breath at night. Reports ?a lot of sick people around her. Denies fevers, chest pain, abdominal pain. Onset (ago): day(s) (3) Treatments prior to arrival: none Related Data Home Medications Medication Instructions Recorded Confirmed ibuprofen 800 mg tablet 800 mg PO TID 01/30/20 07/17/23 loratadine 10 mg tablet (Claritin) 10 mg PO DAILY 03/21/21 07/17/23 Allergies Allergy/AdvReac Type Severity Reaction Status Date / Time No Known Allergies Allergy Verified 07/17/23 11:36 Review of Systems Review of Systems: All systems reviewed & are unremarkable except as noted in HPI and below Constitutional: Constitutional: Reports no additional constitutional complaints Eyes: Eyes: Reports no additional eye complaints ENT: Reports as per HPI and Reports sore throat Cardiovascular: Cardiovascular: Reports no additional cardiovascular complaints, Denies chest pain and Denies dyspnea Respiratory: Respiratory: Reports as per HPI, Denies chest congestion, Reports cough and Denies dyspnea Gastrointestinal: Gastrointestinal: Reports no additional gastrointestinal complaints, Denies abdominal pain, Denies nausea and Denies vomiting Musculoskeletal: Musculoskeletal: Reports no additional musculoskeletal complaints Integumentary/Breasts: Skin/Breast: Reports system reviewed and no additional complaints, except as docu Neurologic: Reports system reviewed and no additional complaints, except as documented Psychiatric: Psychiatric: Reports no additional psychiatric complaints Allergic/Immunologic: Allergic/Immunologic: Reports no additional allergic/immunologic complaints [facility] Past Medical History Medical History Anxiety disorder, unspecified Arthritis Essential (primary) hypertension Fatty liver Fibromyalgia GERD (gastroesophageal reflux disease) Hyperglycemia Migraine Uterine fibroid Surgical History Surgical History History of colposcopy 2017 History of dilation and curettage 2008 2017 History of esophagogastroduodenoscopy (EGD) 2019 History of tonsillectomy and adenoidectomy 1981 [place] teeth extracted 1998 Family History Family History Father Family history of malignant neoplasm Heart disease Hypertension Grandparent Heart disease Mother Hypertension Thyroid disorder Alcoholism Lung cancer Heart disease Cerebrovascular accident Alzheimer disease Social History Social History Smoking packs per day: 0.33 Smoking cigarettes per day: 6.6 Smoking status: Current every day smoker Tobacco type: cigarettes Second hand tobacco smoke exposure: Yes Smoking end date: 04/04/20 Additional smoking assessment comments: started again 3 months ago - 09/15 Alcohol intake: current Alcohol use details: occassional Substance use: never Lack of Transportation: No Lack of Food: Never True Current Housing: I Have Housing Concerned About Future Housing: No Difficulty Paying Gas/Electric Bills: YES Difficulty Paying for Meds: YES Currently Unemployed: No Education: Trade/Vocational Certificate Difficulty w/ Childcare or Family Care: No Spiritual care concerns: No Comments At the time of my signature, I reviewed and agree with the nursing past medical, surgical, social, and family history. Ther
[2023-07-17] MEDS: ALBUTEROL SULFATE NEB 2.5 MG/3 ML INH INHALATION (12:29)
[2023-07-17] MEDS: IPRATROPIUM BR 0.02% INH SOLN 0.5 MG/2.5 ML VIAL INHALATION (12:29)
== END 2023-07-17 13:16 | disposition home or self-care (01) ==
PROVIDERS: Emergency Provider Nurse Practitioner; PCP Internal Medicine
DX: J40 Bronchitis, not specified as acute or chronic (principal); E66.01 Morbid (severe) obesity due to excess calories; I10 Essential (primary) hypertension; F17.210 Nicotine dependence, cigarettes, uncomplicated; Z79.1 Long term (current) use of non-steroidal anti-inflammatories (NSAID); Z68.43 Body mass index [BMI] 50.0-59.9, adult; Z20.822 Contact with and (suspected) exposure to COVID-19
CPT/HCPCS: 71046; 87081; 87426; 87804; 87880; 94640; 99213; C9803; G0463

== ENCOUNTER 2023-11-26 07:09 | Outpatient (CLI) | payer OTHER, SELFPAY ==
[2023-11-26 07:37] LABS: Basophils Absolute Auto 0.1 K/mm3 (0.0-0.1); Basophils Percent Auto 0.4 % (0.2-1.2); Eosinophils Absolute Auto 0.2 K/mm3 (0-0.3); Eosinophils Percent Auto 1.7 % (0-4.4); Hematocrit 50.1 % (37.0-47.0); Hemoglobin 16.2 g/dL (12.0-15.0); Immature Granulocyte Absolute 0.04 K/mm3 (0.00-0.031); Immature Granulocyte Percent A 0.3 % (0-0.5); Lymphocytes Absolute Auto 2.05 K/mm3 (0.9-3.2); Lymphocytes Percent Auto 16.2 % (18.3-44.2); Mean Corpuscular HGB Conc 32.3 g/dl (32-36); Mean Corpuscular Hemoglobin 29.7 pg (26-34); Mean Corpuscular Volume 91.8 fl (80-100); Monocytes Absolute Auto 0.7 K/mm3 (0.1-0.6); Monocytes Percent Auto 5.7 % (2.6-8.5); Neutrophils Absolute Auto 9.6 K/mm3 (1.3-6.7); Neutrophils Percent Auto 75.7 % (45.5-73.1); Platelet Count Result 236 k/mm3 (150-375); Red Blood Count 5.46 M/mm3 (4.2-5.4); White Blood Count 12.6 K/mm3 (4.5-10.0)
[2023-11-26 07:46] LABS: Hemoglobin A1C 10.9 % (<5.7)
[2023-11-26 07:48] LABS: Alanine Aminotransferase 17 U/L (6-35); Albumin Level 4.1 g/dL (3.5-5.1); Alkaline Phosphatase 155 U/L (38-126); Anion Gap 5 mmol/L (4-12); Aspartate Amino Transferase 30 U/L (14-36); Bilirubin,Total 0.5 mg/dL (0.2-1.3); Blood Urea Nitrogen 11 mg/dL (7-17); Calcium 9.5 mg/dL (8.4-10.2); Carbon Dioxide 30 mmol/L (22-30); Chloride 100 mmol/L (98-107); Cholesterol 222 mg/dL (0-200); Estimated Glomerular Filt Rate > 60; Glucose 312 mg/dL (65-110); HDL Direct 38 mg/dL; Potassium 3.8 mmol/L (3.4-5.0); Sodium 135 mmol/L (137-145); Triglycerides 187 mg/dL (<150)
[2023-11-26 07:59] LABS: LDL Cholesterol Direct 156 mg/dL
[2023-11-26 08:40] LABS: Creatinine Urine 158.1 mg/dL
[2023-11-26 09:03] LABS: MALB Creatinine Ratio 162.4 mg/g (0-30); Microalbumin Urine Random 256.8 mg/L (0-16.7)
== END 2023-11-26 07:10 | disposition home or self-care (01) ==
LOC: ANHLAB 07:11
PROVIDERS: PCP Internal Medicine; Visit Provider Internal Medicine
DX: D72.829 Elevated white blood cell count, unspecified (principal); E78.5 Hyperlipidemia, unspecified; E11.9 Type 2 diabetes mellitus without complications; I10 Essential (primary) hypertension
CPT/HCPCS: 36415; 80053; 80061; 82043; 83036; 84443; 85025

== ENCOUNTER 2024-03-11 10:13 | Outpatient (CLI) | payer OTHER, SELFPAY ==
[2024-03-11 11:17] LABS: Hemoglobin A1C 9.6 % (<5.7)
[2024-03-11 11:24] LABS: Alanine Aminotransferase 13 U/L (6-35); Alkaline Phosphatase 120 U/L (38-126); Aspartate Amino Transferase 26 U/L (14-36); Bilirubin,Total 0.4 mg/dL (0.2-1.3); Cholesterol 216 mg/dL (0-200); HDL Direct 34 mg/dL; Triglycerides 165 mg/dL (<150)
[2024-03-11 11:35] LABS: LDL Cholesterol Direct 149 mg/dL
== END 2024-03-11 10:14 | disposition home or self-care (01) ==
PROVIDERS: PCP Internal Medicine; Visit Provider Internal Medicine
DX: E78.5 Hyperlipidemia, unspecified (principal); E11.9 Type 2 diabetes mellitus without complications; Z51.81 Encounter for therapeutic drug level monitoring
CPT/HCPCS: 36415; 80061; 80076; 83036

== ENCOUNTER 2024-04-10 09:56 | Outpatient (CLI) | payer OTHER, SELFPAY ==
[2024-04-10 10:34] LABS: Basophils Absolute Auto 0.1 K/mm3 (0.0-0.1); Basophils Percent Auto 0.4 % (0.2-1.2); Eosinophils Absolute Auto 0.2 K/mm3 (0-0.3); Eosinophils Percent Auto 1.5 % (0-4.4); Hematocrit 48.9 % (37.0-47.0); Hemoglobin 16.5 g/dL (12.0-15.0); Immature Granulocyte Absolute 0.07 K/mm3 (0.00-0.031); Immature Granulocyte Percent A 0.5 % (0-0.5); Lymphocytes Absolute Auto 1.98 K/mm3 (0.9-3.2); Lymphocytes Percent Auto 13.9 % (18.3-44.2); Mean Corpuscular HGB Conc 33.7 g/dl (32-36); Mean Corpuscular Hemoglobin 30.3 pg (26-34); Mean Corpuscular Volume 89.9 fl (80-100); Mean Platelet Volume 12.2 fl (7.4-10.4); Monocytes Absolute Auto 0.7 K/mm3 (0.1-0.6); Monocytes Percent Auto 4.9 % (2.6-8.5); Neutrophils Absolute Auto 11.2 K/mm3 (1.3-6.7); Neutrophils Percent Auto 78.8 % (45.5-73.1); Platelet Count Result 223 k/mm3 (150-375); Red Blood Count 5.44 M/mm3 (4.2-5.4); Red Cell Distribution Width 15.2 % (11.5-14.5); White Blood Count 14.3 K/mm3 (4.5-10.0)
[2024-04-10 10:44] LABS: Alanine Aminotransferase 20 U/L (6-35); Alkaline Phosphatase 131 U/L (38-126); Anion Gap 10 mmol/L (4-12); Aspartate Amino Transferase 39 U/L (14-36); Bilirubin,Total 0.4 mg/dL (0.2-1.3); Blood Urea Nitrogen 15 mg/dL (7-17); Calcium 9.1 mg/dL (8.4-10.2); Carbon Dioxide 27 mmol/L (22-30); Chloride 96 mmol/L (98-107); Estimated Glomerular Filt Rate > 60; Glucose 289 mg/dL (65-110); Potassium 3.7 mmol/L (3.4-5.0); Sodium 133 mmol/L (137-145)
[2024-04-10 15:16] LABS: Add Urine Microscopic? NO; Appearance Urine Clear (Clear); Bilirubin Urine Negative (Negative); Blood Urine Negative (Negative); Color Urine Yellow (Yellow); Glucose Urine UA 3+ mg/dL (Negative); Ketones Urine 1+ mg/dL (Negative); Leukocyte Esterase Ur Negative LEU/UL (Negative); Nitrate Urine Negative (Negative); Protein Urine Negative (Negative); Specific Grav Ur 1.021 (1.001-1.035); Urobilinogen Urine 0.2 mg/dL (<2.0)
== END 2024-04-10 09:57 | disposition home or self-care (01) ==
PROVIDERS: PCP Internal Medicine; Visit Provider Internal Medicine
DX: R10.9 Unspecified abdominal pain (principal)
CPT/HCPCS: 36415; 80053; 81003; 85025

== ENCOUNTER 2024-05-05 15:58 | Outpatient (CLI) | payer OTHER, SELFPAY ==
--- NOTE | ~2024-05-05 | CT_ITS ---
CLINICAL INDICATION: Left upper quadrant pain. COMPARISON: 11/28/2021. TECHNIQUE: Computed tomography (CT) of the abdomen was performed without intravenous contrast. The do se-length product was 1027.09 mGy-cm. FINDINGS/OBSERVATIONS: Visualized lower thorax:The bilateral lung bases are clear. The heart is of normal size, without pericardial effusion. A small hiatal hernia is present. Liver: The liver is unremarkable in attenuation and size measuring 15 cm in longitudinal dimension. Gallbladder and biliary system: Multiple stones are identified within the gallbladder, which is other agudelo unremarkable (and largely decompressed). Pancreas: Limited evaluation without intravenous contrast. Spleen: The spleen is unremarkable in attenuation and size measuring 9.8 cm in longitudinal dimension . Kidneys: No stones are identified within the bilateral kidneys. No hydronephrosis is present. Adrenal glands: Unremarkable Gastrointestinal tract: Fecal stasis within the ascending colon. Appendix:The air-filled appendix is of normal caliber (series 3, image 120). Vasculature: Unremarkable. Lymph nodes: No pathologically enlarged or morphologically suspicious lymph nodes within the retroper itoneum. Bones: Degenerative disease within the lower thoracic spine, with osteophyte formation, disc space na rrowing, endplate changes and vacuum phenomena. IMPRESSION: No imaging abnormality within the left upper quadrant as a source of patient discomfort. Cholelithiasis. No acute intra-abdominal pathology. Reviewed, dictated and finalized at location A. IMPRESSION: No imaging abnormality within the left upper quadrant as a source of patient di [place]. Cholelithiasis. No acute intra-abdominal pathology.
--- NOTE | ~2024-05-05 | US_ITS ---
EXAMINATION: US soft tissue head and neck DATE: 05/05/2024 16:28 INDICATION: Localized swelling, mass and lump, neck. TECHNIQUE: Multiple grayscale and Doppler ultrasound images of the head and neck were obtained. COMPARISON: None FINDINGS: There is no abnormal mass or lymphadenopathy in the patient's area of concern in left neck. IMPRESSION: 1. No abnormal mass or lymphadenopathy in the patient's area of concern in left neck. Reviewed, dictated and finalized at location A.
== END 2024-05-05 15:59 | disposition home or self-care (01) ==
LOC: ANHIMG 15:59
PROVIDERS: PCP Internal Medicine; Visit Provider Internal Medicine
DX: R10.9 Unspecified abdominal pain (principal); R22.1 Localized swelling, mass and lump, neck; K80.20 Calculus of gallbladder without cholecystitis without obstruction
CPT/HCPCS: 74150; 76536

== ENCOUNTER 2024-09-02 16:12 | Emergency (ER) | payer OTHER, SELFPAY ==
[2024-09-02 16:23] VITALS: BP 111/68; PULSE 90; RESP 16; TEMP 36.2; O2SAT 99
--- NOTE | 2024-09-02 16:24 | ED_ITS ---
HPI - General Adult General Chief complaint: Ear Stated complaint: right ear pain Time Seen by Provider: 09/02/24 16:24 Source: patient, RN notes reviewed and old records reviewed Mode of arrival: ambulatory Limitations: no limitations History of Present Illness HPI narrative: Patient presents with complaints of ear pain that has been present for about 5 days. She denies any injury or trauma. She reports the pain is worse when she swallows. She is able to manage own secretions, no drooling or stridor noted. She reports intermittently taking [id number] medications to treat her symptoms with moderate relief Related Data Home Medications ?Medication ?Instructions ?Recorded ?Confirmed ?Last Taken ?Type ibuprofen 800 mg tablet 800 mg PO TID 01/30/20 06/27/24 06/21/21 History loratadine 10 mg tablet (Claritin) 10 mg PO DAILY 03/21/21 06/27/24 06/21/21 History Allergies Allergy/AdvReac Type Severity Reaction Status Date / Time No Known Allergies Allergy Verified 09/02/24 16:17 Review of Systems Review of Systems: All systems reviewed & are unremarkable except as noted in HPI and below Constitutional: Constitutional: Reports no additional constitutional complaints ENT: Reports system reviewed and no additional complaints, except as documented and Reports otalgia Cardiovascular: Cardiovascular: Reports no additional cardiovascular complaints Respiratory: Respiratory: Reports no additional respiratory complaints Gastrointestinal: Gastrointestinal: Reports no additional gastrointestinal complaints [facility] Past Medical History Medical History Uterine fibroid Fibromyalgia Migraine Arthritis Hyperglycemia Fatty liver GERD (gastroesophageal reflux disease) Anxiety disorder, unspecified Essential (primary) hypertension Surgical History Surgical History History of esophagogastroduodenoscopy (EGD) 2019 [place] teeth extracted 1998 History of colposcopy 2018 History of dilation and curettage 2008 2018 History of tonsillectomy and adenoidectomy 1981 Family History Family History Father Family history of malignant neoplasm Heart disease Hypertension Grandparent Heart disease Mother Hypertension Thyroid disorder Alcoholism Lung cancer Heart disease Cerebrovascular accident Alzheimer disease Social History Social History Smoking packs per day: 0.33 Smoking cigarettes per day: 6.6 Smoking status: Current every day smoker (1/2 ppd; started smoking at age14.) Tobacco type: cigarettes Second hand tobacco smoke exposure: Yes Smoking end date: 04/04/20 Additional smoking assessment comments: started again 3 months ago - 09/15 Alcohol intake: current Alcohol use details: occassional Substance use: never Lack of Transportation: No Lack of Food: Never True Current Housing: I Have Housing Concerned About Future Housing: No Difficulty Paying Gas/Electric Bills: YES Difficulty Paying for Meds: YES Currently Unemployed: No Education: Trade/Vocational Certificate Difficulty w/ Childcare or Family Care: No Spiritual care concerns: No Comments At the time of my signature, I reviewed and agree with the nursing past medical, surgical, social, and family history. There is no relevant family history pertinent to the patient complaint. Exam Const: General: cooperative, no acute distress, alert and awake Orientation/consciousness: oriented to person, oriented to place and oriented to time HENMT: Head: normal to inspection Ears: TM normal on the left and TM abnormal with fluid behind the TM on the right Mouth: Yes moist mucous membranes Throat: posterior oropharynx abnormal erythema Resp: Effort & Inspection: normal respiratory effort and able to speak in complete sentences Auscultation: clear to auscultation bilaterally, no crackles, no rales, no rhonchi and no wheezes Cardio: Palpation: normal PMI Rate: regular rate Rhythm: regular rhythm Heart sounds: S1 normal heart sound present and S2 normal heart sound present Neuro: General: oriented to person, oriented to place and oriented to time Cranial nerves: Yes CN's II-XII intact bilaterally Psych: Appearance: grossly normal Thought process: Normal thought process present Insight: Good insight present (Psych) Judgement: Good judgement present (Psych) Course Course Level of Care: Express Care Visit Vital Signs Vital signs: Vital Signs Temperature 97.2 F L 09/02/24 16:23 Pulse Rate 90 09/02/24 16:23 Respiratory Rate 16 09/02/24 16:23 Blood Pressure 111/68 09/02/24 16:23 Pulse Oximetry 99 09/02/24 16:23 Oxygen Delivery Autopap 09/02/24 16:23 Temperature 97.2 F L 09/02/24 16:23 Pulse Rate 90 09/02/24 16:23 Respiratory Rate 16 09/02/24 16:23 Blood Pressure 111/68 09/02/24 16:23 Pulse Oximetry 99 09/02/24 16:23 Oxygen Delivery Autopap 09/02/24 16:23 Reviewed Medical Decision Making MDM Narrative Medical decision making narrative: Negative strep, culture pending. Supportive care measures discussed with patient. She is nontoxic appearing, stable for discharge home. Discharge instructions reviewed with patient, as well as provided in writing per nursing staff. The instructions also include specific and strict return/GO TO THE ER as well as f/u information. All questions have been answered, and the patient deny any further questions with discharge and discharge plan. Some parts of this dictation were generated by voice recognition software and may contain typographical and/or grammatical inaccuracies. Differential Diagnosis Differential Diagnosis: Pharyngitis, viral illness. Otitis media, otitis externa Vital Signs Vital Signs: Vital Signs Temperature 97.2 F L 09/02/24 16:23 Pulse Rate 90 09/02/24 16:23 Respiratory Rate 16 09/02/24 16:23 Blood Pressure 111/68 09/02/24 16:23 Pulse Oximetry 99 09/02/24 16:23 Oxygen Delivery Autopap 09/02/24 16:23 Temperature 97.2 F L 09/02/24 16:23 Pulse Rate 90 09/02/24 16:23 Respiratory Rate 16 09/02/24 16:23 Blood Pressure 111/68 09/02/24 16:23 Pulse Oximetry 99 09/02/24 16:23 Oxygen Delivery Autopap 09/02/24 16:23 reviewed Lab Data Lab results reviewed: Yes I reviewed the patient's lab results. Lab results narrative: reviewed Discharge Plan Discharge Clinical Impression: URI (upper respiratory infection) Qualifiers: URI type: unspecified URI Qualified Code(s): J06.9 - Acute upper respiratory infection, unspecified Patient Disposition: Home, Self-Care Condition: Stable Instructions: Antibiotic Form, Cold Symptoms (ED) Patient Language: Maltese Prescriptions: No Action (DME) Aerochamber MV Spacer See Rx Instructions .Route Qty: 1 0RF Rx Instructions: As directed (DME) blood-glucose meter [OneTouch Verio Flex meter] Misc See Rx Instructions .ROUTE .MEDSUPPLY Qty: 1 0RF Rx Instructions: check blood sugar once daily loratadine [Claritin] 10 mg tablet 10 mg PO DAILY ibuprofen 800 mg tablet 800 mg PO TID (DME) lancets [OneTouch Delica Lancets] 33 gauge misc See Rx Instructions .ROUTE .MEDSUPPLY Qty: 100 1RF Rx Instructions: check blood sugar once daily metformin 500 mg tablet extended release 24 hr 500 mg PO .COMPLEX Qty: 270 3RF Rx Instructions: 2AM & 1 PM ramipril 5 mg capsule 5 mg PO DAILY Qty: 90 3RF hydrochlorothiazide 25 mg tablet 25 mg PO DAILY Qty: 90 3RF omeprazole 40 mg capsule,delayed release(DR/EC) 40 mg PO DAILY Qty: 90 3RF (DME) OneTouch Verio test strips Strip See Rx Instructions .ROUTE .MEDSUPPLY Qty: 100 3RF Rx Instructions: check blood sugar once daily paroxetine HCl 40 mg tablet 40 mg PO DAILY Qty: 90 3RF Jardiance 25 mg tablet 25 mg PO DAILY Qty: 90 3RF Follow-up/Referrals: David White DO [Primary Care Provider] - 2 Weeks Time of Disposition: 16:46
[2024-09-02 16:44] LABS: EDSTREPNEGPOS1 Negative (Negative)
== END 2024-09-02 16:55 | disposition home or self-care (01) ==
PROVIDERS: Emergency Provider Nurse Practitioner Family; PCP Internal Medicine
DX: J06.9 Acute upper respiratory infection, unspecified (principal); F17.210 Nicotine dependence, cigarettes, uncomplicated; I10 Essential (primary) hypertension; K21.9 Gastro-esophageal reflux disease without esophagitis; K76.0 Fatty (change of) liver, not elsewhere classified; M79.7 Fibromyalgia; M19.90 Unspecified osteoarthritis, unspecified site
CPT/HCPCS: 87081; 87880; 99213; G0463

== ENCOUNTER 2025-02-01 09:16 | Outpatient (CLI) | payer OTHER, SELFPAY ==
[2025-02-01 10:03] LABS: Hematocrit 50.6 % (37.0-47.0); Hemoglobin 16.7 g/dL (12.0-15.0); Immature Granulocyte Percent A 0.4 % (0-0.5); Lymphocytes Absolute Auto 2.50 K/mm3 (0.9-3.2); Mean Corpuscular HGB Conc 33.0 g/dl (32-36); Mean Corpuscular Hemoglobin 30.4 pg (26-34); Mean Corpuscular Volume 92.0 fl (80-100); Nucleated Red Blood Cells Absolute Auto 0.000 K/mm3 (0.0-0.012); Nucleated Red Blood Cells Perc 0.0 % (0.0-0.2); Platelet Count Result 229 k/mm3 (150-375); Red Blood Count 5.50 M/mm3 (4.2-5.4); White Blood Count 14.2 K/mm3 (4.5-10.0)
[2025-02-01 10:15] LABS: Alanine Aminotransferase 16 U/L (6-35); Albumin Level 4.0 g/dL (3.5-5.1); Alkaline Phosphatase 113 U/L (38-126); Anion Gap 8 mmol/L (4-12); Aspartate Amino Transferase 32 U/L (14-36); Bilirubin,Total 0.5 mg/dL (0.2-1.3); Blood Urea Nitrogen 13 mg/dL (7-17); Calcium 9.0 mg/dL (8.4-10.2); Carbon Dioxide 28 mmol/L (22-30); Chloride 101 mmol/L (98-107); Cholesterol 243 mg/dL (0-200); Estimated Glomerular Filt Rate > 60; Glucose 187 mg/dL (65-110); HDL Direct 36 mg/dL; Potassium 3.8 mmol/L (3.4-5.0); Sodium 137 mmol/L (137-145); Total Protein 7.4 g/dL (6.3-8.2); Triglycerides 201 mg/dL (<150)
[2025-02-01 10:50] LABS: Hemoglobin A1C 8.7 % (<5.7)
== END 2025-02-01 09:17 | disposition home or self-care (01) ==
LOC: ANHLAB 09:19
PROVIDERS: PCP Internal Medicine; Visit Provider Internal Medicine
DX: D72.829 Elevated white blood cell count, unspecified (principal); E11.9 Type 2 diabetes mellitus without complications; E78.5 Hyperlipidemia, unspecified; I10 Essential (primary) hypertension
CPT/HCPCS: 36415; 80053; 80061; 83036; 85025